=== PATIENT | female | born 1995 | race Caucasian/White ===

== ENCOUNTER 2020-10-16 05:51 | Emergency (ER) | payer SELFPAY ==
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
--- NOTE | 2020-10-16 15:20 | CR ---
Left thumb: 3 views of the left thumb were obtained. Comparison: No previous thumb study. Joint spaces are maintained within the left thumb. Detached bony density is seen off the ulnar styloid process which is well corticated and old. No acute fracture, dislocation or other bony abnormality is appreciated. Impression: 1. Well-corticated bony density off the ulnar styloid process which is felt to be old. 2. Left thumb study is otherwise unremarkable. Diagnostic code #2
== END 2020-10-16 06:42 ==
LOC: JD.ED 05:51
DX: S60.012A Contusion of left thumb without damage to nail, initial encounter (principal); Y04.0XXA Assault by unarmed brawl or fight, initial encounter
CPT/HCPCS: 73140-26-FA; 73140-FA; 99282; 99284-25